=== PATIENT | male | born 1965 | race Caucasian/White ===

== ENCOUNTER 2018-06-21 14:26 | Emergency (ER) | payer BC ==
[2018-06-21 15:26] VITALS: BP 191/100
--- NOTE | 2018-06-21 16:44 | UC ---
FLU HPI - HPI Summary HPI Summary: 52 y/o male with 10 days h/o sinus congestion, dry cough worse at night, keeping him up. no pmh, no medications, no recent abx use. denies fever, chills, body aches, minimal throat pain. mild ear discomfort. - History of Current Complaint Chief Complaint: UCGeneralIllness Stated Complaint: EAR PAIN,SORE THROAT,COUGH Time Seen by Provider: 06/21/18 16:22 Hx Obtained From: Patient Onset/Duration: Sudden Onset, Lasting Days Severity Currently: Mild Severity Initially: Mild Pain Intensity: 0 Pain Scale Used: 0-10 Numeric Associated Signs & Symptoms: Positive: Cough, Sore Throat, Nasal Congestion - Allergy/Home Medications Allergies/Adverse Reactions: Allergies Allergy/AdvReac Type Severity Reaction Status Date / Time No Known Allergies Allergy Verified 06/21/18 15:26 PMH/Surg Hx/FS Hx/Imm Hx Previously Healthy: Yes - Surgical History Surgical History: Yes Surgery Procedure, Year, and Place: gallbladder removed - Social History Alcohol Use: Daily Alcohol Amount: 1-2 beers nightly Substance Use Type: None Smoking Status (MU): Current Some Day Smoker Type: Cigars Review of Systems All Other Systems Reviewed And Are Negative: Yes ENT: Positive: Nasal Discharge, Sinus Congestion Respiratory: Positive: Cough Is Patient Immunocompromised?: No Physical Exam Triage Information Reviewed: Yes Appearance: Well-Appearing, No Pain Distress, Well-Nourished Vital Signs: Initial Vital Signs Temp 97.7 F 06/21/18 15:23 Pulse 77 06/21/18 15:23 Resp 16 06/21/18 15:23 BP 191/100 06/21/18 15:23 Pulse Ox 99 06/21/18 15:23 Vital Signs Reviewed: Yes Eyes: Positive: Conjunctiva Clear ENT: Positive: Pharynx normal, TMs normal, TM red - minimal right sided, Uvula midline. Negative: Tonsillar swelling, Tonsillar exudate, Muffled voice, Hoarse voice, Dental tenderness, Sinus tenderness Neck: Positive: Supple, Nontender, No Lymphadenopathy Respiratory: Positive: Chest non-tender, Lungs clear, Normal breath sounds, No respiratory distress, No accessory muscle use. Negative: Crackles, Rhonchi, Stridor, Wheezing, Expiration Cardiovascular: Positive: RRR, No Murmur, Pulses Normal Abdomen Description: Negative: CVA Tenderness (R), CVA Tenderness (L) Neurological Exam: Normal Psychological Exam: Normal Flu Course/Dx - Course Course Of Treatment: leeanna viral URI, cough medication given follow up with primary if symptoms not improved - Differential Dx/Diagnosis Provider Diagnosis: Cough Discharge - Sign-Out/Discharge Documenting (check all that apply): Patient Departure All imaging exams completed and their final reports reviewed: No Studies - Discharge Plan Condition: Good Disposition: HOME Prescriptions: Codeine Phosphate/Guaifenesin [Guaifen-Codeine 100-10 mg/5 ml] 5 ml PO Q6H PRN # 40 ml MDD 10ml PRN Reason: cough hydroCHLOROthiazide [Hydrochlorothiazide] 12.5 mg PO DAILY #30 tablet Patient Education Materials: Decongestant/Expectorant (By mouth), Guaifenesin ( By mouth), Viral Syndrome (ED), Hypertension (ED) Referrals: Tito Henson DO [Primary Care Provider] - Additional Instructions: - Increase fluid intake - Humidifier at bedside - Guaif/ hildaiene for sleeping, help with cough - Mucinex during day to aide with bringing up phlegm - Cough drops, over the counter medications during the day - 12.5mg of hydrochlorothiazide every day to help with elevated blood pressure - FOllow up with your primary physician within 1 week due to elevated blood pressure. VERY IMPORTANT - Billing Disposition and Condition Condition: GOOD Disposition: Home
== END 2018-06-21 17:16 | disposition home or self-care (01) ==
LOC: UCCORT 14:26
DX: R05 Cough (principal); F17.210 Nicotine dependence, cigarettes, uncomplicated
CPT/HCPCS: 99212; G0463

== ENCOUNTER 2018-11-26 15:24 | Emergency (ER) | payer BC, OTHER ==
--- OUTSIDE RECORDS SUMMARY | 2018-11-26 15:41 | XMS REPORT | Continuity of Care Document ---
:1965 External Reference #:[id number] Author Name Tito Henson D.O. Address [address] [place] [address] Care Team Providers Name Role Phone HCP/LW on file Primary Care Physician Unavailable Payers Date Identification Numbers Payment Provider Subscriber Effective: Policy Number: [id number] Pierce [place] 2014 Ind/Ppo/Hmo/Pos Expires: 2018 Group Number: [id number] [address] PayID: [id number] [place] [address] Effective: 2018 Policy Number: [employer] Out Of Marty [place] [id number] [facility] PayID: [id number] [place] [address] Effective: 2018 Policy Number: [id number] [employer] [facility] Rhonda [place] PayID: [id number] [address] [place] [address] Problems Active Problems Provider Date Alcohol-induced sexual dysfunction Tito Henson D.O. Onset: 11/09/2018 Varicose veins of lower extremity Tito Henson D.O. Onset: 11/09/2018 Psychogenic impotence Tito Henson D.O. Onset: 11/09/2018 Essential hypertension Tito Henson D.O. 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 More on weekends Tobacco Use Start: Unknown Light tobacco smoker (10 or 2 cigars a week fewer cigarettes/day) Allergies, Adverse Reactions, Alerts Description No Known Drug Allergies Medications Active Medications SIG Qnty Indications Ordering Provider Date Losartan Potassium 1 tablet daily 90tabs I10 Francheska Hensonon, 11/09/2018 25mg for high blood D.O. Tablets pressure Viagra take one tablet 6tabs F52.21 Francheska Hensonon, 10/10/2018 100mg Tablets up to once daily D.O. as needed for erectile dysfunction; max 1 dose/day History Medications No Active Unknown 10/10/2018 - Medications 10/10/2018 Amlodipine Besylate take 1 tablet by 90tabs I10 Tito Henson, 2018 - mouth once daily D.O. 11/09/2018 5mg Tablets for high blood pressure Vitamin D3 take one capsule by 90caps E55.9 Tito Henson, 07/07/2015 - 5000Unit mouth every day or D.O. 10/09/2018 Capsules 7 tablets once a week Prednisone 2 pills for 3 days 11tabs 692.6 Tito Henson, 10/23/2013 - 20mg then 1 pill for 3 D.O. 11/02/2013 Tablets days 1/2 pill for 4 days. Augmentin 1 cap by mouth 20tabs 461.0 Tito Henson, 10/23/2013 - 875-125mg twice a day D.O. 11/02/2013 Tablets No Active Tito Henson, 03/22/2013 - Medications D.O. 03/22/2013 Viagra take 1 tablet by 18tabs F52.21 Tito Henson, 03/22/2013 - 25mg Tablets mouth daily as D.O. 10/09/2018 needed for erectile dysfunction 6 tabs/30days Immunizations CPT Code Status Date Vaccine Lot # [id number] Given 03/03/2016 Pneumococcal Immunization [id number] Given 03/03/2016 Flu, Split Virus 3Yrs [id number] Given 03/22/2013 Flu, Split Virus 3Yrs [id number] Vital Signs Date Vital Result Comment 11/09/2018 2:56pm BP Systolic 154 mmHg BP Diastolic 86 mmHg Weight 251.00 lb 10/10/2018 4:53pm BP Systolic 162 mmHg BP Diastolic 100 mmHg Height 67 inches 5'7" Weight 254.00 lb BMI (Body Mass Index) 39.8 kg/m2 08/07/2015 3:07pm BP Systolic 140 mmHg BP Diastolic 88 mmHg BP Systolic Recheck 148 mmHg BP Diastolic Recheck 88 mmHg Height 67.25 inches 5'7.25" Weight 235.00 lb BMI (Body Mass Index) 36.5 kg/m2 07/07/2015 3:31pm BP Systolic 157 mmHg BP Diastolic 91 mmHg BP Systolic Recheck 160 mmHg recheck Ra BP Diastolic Recheck 90 mmHg recheck Ra Heart Rate 76 /min Height 67.25 inches 5'7.25" Weight 244.00 lb BMI (Body Mass Index) 37.9 kg/m2 10/23/2013 3:44pm BP Systolic 128 mmHg BP Diastolic 82 mmHg Body Temperature 98.7 F Height 67.50 inches 5'7.50" Weight 229.00 lb BMI (Body Mass Index) 35.3 kg/m2 03/22/2013 8:42am BP Systolic 132 mmHg BP Diastolic 86 mmHg Height 67.75 inches 5'7.75" Weight 222.00 lb BMI (Body Mass Index) 34.0 kg/m2 Results Test Date Facility Test Result H/L Range Note CBC Auto Diff 10/28/2018 [facility] White Blood 7.3 10^3/uL N 3.5- 10.8 [phone] Count Red Blood Count 4.61 10^6/uL N 4.18-5.48 Hemoglobin 15.0 g/dL N 14.0-18.0 Hematocrit 44 % N 42-52 Mean Corpuscular Volume 95 fL High 80-94 Mean Corpuscular Hemoglobin 33 pg High 27-31 Mean Corpuscular HGB Conc 34 g/dL N 31-36 Red Cell Distribution Width 13 % N 10.5-15 Platelet Count 258 10^3/uL N 150-450 Mean Platelet Volume 8.1 fL N 7.4-10.4 Abs Neutrophils 4.2 10^3/uL N 1.5-7.7 Abs Lymphocytes 1.7 10^3/uL N 1.0-4.8 Abs Monocytes 0.6 10^3/uL N 0-0.8 Abs Eosinophils 0.7 10^3/uL High 0-0.6 Abs Basophils 0.1 10^3/uL N 0-0.2 Abs Nucleated RBC 0.0 10^3/uL Granulocyte % 57.5 % Lymphocyte % 23.7 % Monocyte % 8.2 % Eosinophil % 9.8 % Basophil % 0.8 % Nucleated Red Blood Cells % 0.0 Comp Metabolic Panel 10/28/2018 [facility] Sodium 138 mmol/L N 135- 145 [phone] Potassium 4.4 mmol/L N 3.5-5.0 Chloride 104 mmol/L N 101-111 Co2 Carbon Dioxide 27 mmol/L N 22-32 Anion Gap 7 mmol/L N 2-11 Glucose 102 mg/dL High 70-100 Blood Urea Nitrogen 15 mg/dL N 6-24 Creatinine 0.84 mg/dL N 0.67-1.17 BUN/Creatinine Ratio 17.9 N 8-20 Calcium 9.7 mg/dL N 8.6-10.3 Total Protein 7.6 g/dL N 6.4-8.9 Albumin 4.6 g/dL N 3.2-5.2 Globulin 3.0 g/dL N 2-4 Albumin/Globulin Ratio 1.5 N 1-3 Total Bilirubin 0.60 mg/dL N 0.2-1.0 Alkaline Phosphatase 66 U/L N 34-104 Alt 36 U/L N 7-52 Ast 24 U/L N 13-39 Egfr Non- 95.2 >60 Egfr 115.2 >60 1 Laboratory test 10/28/2018 [facility] TSH (Thyroid Stim 1.23 mcIU/mL N 0.34-5.60 finding [phone] Horm) Lipid Profile 10/28/2018 [facility] Triglycerides 81 mg/dL 2 (Trig/Chol/HDL) [phone] Cholesterol 166 mg/dL 3 HDL Cholesterol 61.6 mg/dL 4 LDL Cholesterol 88 mg/dL 5 Laboratory 08/04/2015 [facility] Hepatitis C Nonreactive N Nonreactive 6 test finding [phone] Antibody HIV 1/2 AB 08/04/2015 [facility] HIV 1 2 Antibody Nonreactive N Nonreactive 7 Evaluation [phone] Lipid Profile 08/04/2015 [facility] Triglycerides 83 mg/dL N 8 (Trig/Chol/HDL [phone] ) Cholesterol 152 mg/dL N 9 HDL Cholesterol 56.5 mg/dL N 10 LDL Cholesterol 79 mg/dL N 11 Laboratory test 08/04/2015 [facility] TSH (Thyroid 1.52 ?IU/mL N 0.34 -5.60 12 finding [phone] Stim Horm) Comp Metabolic 08/04/2015 [facility] Sodium 136 mmol/L N 133-145 Panel [phone] Potassium 4.4 mmol/L N 3.5-5.0 Chloride 103 mmol/L N 101-111 Co2 Carbon Dioxide 26 mmol/L N 22-32 Anion Gap 7 mmol/L N 2-11 Glucose 98 mg/dL N 70-100 Blood Urea Nitrogen 15 mg/dL N 6-24 Creatinine 0.99 mg/dL N 0.67-1.17 BUN/Creatinine Ratio 15.2 N 8-20 Calcium 9.4 mg/dL N 8.6-10.3 Total Protein 6.9 g/dL N 6.4-8.9 Albumin 4.4 g/dL N 3.2-5.2 Globulin 2.5 g/dL N 2-4 Albumin/Globulin Ratio 1.8 N 1-3 Total Bilirubin 0.50 mg/dL N 0.2-1.0 Alkaline Phosphatase 76 U/L N 34-104 Alt 33 U/L N 7-52 Ast 20 U/L N 13-39 Egfr Non- 79.7 N >60 Egfr 102.5 N >60 13 CBC Auto Diff 08/04/2015 [facility] White Blood Count 8.1 10^3/uL N 3.5-10.8 [phone] Red Blood Count 4.68 10^6/uL N 4.0-5.4 Hemoglobin 15.3 g/dL N 14.0-18.0 Hematocrit 46 % N 42-52 Mean Corpuscular Volume 98 fL High 80-94 Mean Corpuscular Hemoglobin 33 pg High 27-31 Mean Corpuscular HGB Conc 34 g/dL N 31-36 Red Cell Distribution Width 13 % N 10.5-15 Platelet Count 268 10^3/uL N 150-450 Mean Platelet Volume 8 um3 N 7.4-10.4 Abs Neutrophils 5.4 10^3/uL N 1.5-7.7 Abs Lymphocytes 1.7 10^3/uL N 1.0-4.8 Abs Monocytes 0.5 10^3/uL N 0-0.8 Abs Eosinophils 0.4 10^3/uL N 0-0.6 Abs Basophils 0 10^3/uL N 0-0.2 Abs Nucleated RBC 0.01 10^3/uL N Granulocyte % 67.0 % N 38-83 Lymphocyte % 21.4 % Low 25-47 Monocyte % 5.6 % N 1-9 Eosinophil % 5.5 % N 0-6 Basophil % 0.5 % N 0-2 Nucleated Red Blood Cells % 0.1 N Ua Inhouse 03/22/2013 In House Ua Glucose - Ua Bilirubin - Ua Ketones - Ua Specific [place] 1.010 Ua Blood - Ua PH 6.0 Ua Protein - Ua Urobilinogen - Ua Nitrite - Ua Leukocytes - Lipid Profile 03/22/2013 [facility] Triglycerides 145 mg/dL 40-200 (Trig/Chol/HDL) [phone] Cholesterol 148 mg/dL Less than 200 HDL Cholesterol 41 mg/dL 40-60 14 Cholesterol/HDL Ratio 3.6 Average 1-4.44 LDL Cholesterol 78.0 Less Than 100 15 CBC With Manual 03/22/2013 [facility] White Blood 6.3 10^3/uL 4.8- 10.8 Diff [phone] Count Red Blood Count 4.39 10^6/uL 4.0-5.4 Hemoglobin 15.6 g/dL 14.0-18.0 Hematocrit 44 % 42-52 Mean Corpuscular Volume 99 fL High 80-94 Mean Corpuscular Hemoglobin 36 pg High 27-31 Mean Corpuscular HGB Conc 36 g/dL 31-36 Red Cell Distribution Width 12 % 10.5-15 Platelet Count 233 10^3/uL 150-450 Mean Platelet Volume 8 um3 7.4-10.4 Abs Neutrophils 3.5 10^3/uL 1.5-7.7 Abs Lymphocytes 1.6 10^3/uL 1.0-4.8 Abs Monocytes 0.6 10^3/uL 0-0.8 Abs Eosinophils 0.5 10^3/uL 0-0.6 Abs Basophils 0 10^3/uL 0-0.2 Abs Nucleated RBC 0 10^3/uL Neutrophil % 52 % 38-83 Lymphocytes % 25 % 25-47 Monocytes % 8 % 0-13 Eosinophils % 9 % High 0-6 Basophil % 1 % 0-2 Reactive Lymph % 5 % 0-6 RBC Morphology Normal Normal Comp Metabolic Panel 03/22/2013 [facility] Sodium 135 mmol/L 133- 145 [phone] Potassium 3.9 mmol/L 3.5-5.0 Chloride 102 mmol/L 101-111 Co2 Carbon Dioxide 27.0 mmol/L 22-32 Anion Gap 6.0 mmol/L 2-11 Glucose 94 mg/dL 70-100 Blood Urea Nitrogen 14 mg/dL 6-24 Creatinine 0.90 mg/dL 0.50-1.40 BUN/Creatinine Ratio 15.6 8-20 Calcium 9.4 mg/dL 8.1-9.9 Total Protein 6.9 g/dL 6.2-8.1 Albumin 4.3 g/dL 3.6-5.4 Globulin 2.6 g/dL 2-4 Albumin/Globulin Ratio 1.7 1-3 Total Bilirubin 0.9 mg/dL 0.4-1.5 Alkaline Phosphatase 64 U/L 30-110 Alt 23 U/L 14-54 Ast 19 U/L 12-42 Egfr Non- 89.7 >60 Egfr 115.3 >60 16 Laboratory test 03/22/2013 [facility] TSH (Thyroid 1.16 miu/mL 0.34- 5.60 finding [phone] Stimulating Horm) Vitamin D, 25 03/22/2013 [facility] 25-Hydroxy <4.0 ng/mL Hydroxy [phone] Vitamin D2 25-Hydroxy Vitamin D3 23 ng/mL 25-Hydroxy Vitamin D Total 23 ng/mL 17 1 Because ethnic data is not always readily available, this report includes an eGFR for both -Americans and non- Americans. The National Kidney Disease Education Program (NKDEP) does not endorse the use of the MDRD equation for patients that are not between the ages of 18 and 70, are , have extremes of body size, muscle mass, or nutritional status, or are non- or non-. According to the National Kidney Foundation, irrespective of diagnosis, the stage of the disease is based on the level of kidney function: Stage Description GFR(mL/min/1.73 m(2)) 1 Kidney damage with normal or decreased GFR 90 2 Kidney damage with mild decrease in GFR 60-89 3 Moderate decrease in GFR 30-59 4 Severe decrease in GFR 15-29 5 Kidney failure <15 (or dialysis) 2 Desirable: <150 Borderline High: 150-199 High: 200-499 Very High: >500 3 Desirable: <200 Borderline High: 200-239 High: >239 4 Low: <40 Desirable: 40-60 High: >60 5 Desirable: <100 Near Optimal: 100-129 Borderline High: 130-159 High: 160-189 Very High: >189 6 FASTING 12 HOUR 7 It is recognized that currently available assays for the detection of antibodies to HIV-1 and/or HIV-2 may not detect all infected individuals. HIV antibodies may be undetectable in some stages of the infection and in some clinical conditions. The performance of this assay has not been established for populations of infants or children. Assayed by Chemiluminescence Microparticle Immunoassay on the Siemens Advia Centaur CP. Values obtained with different methods or kits cannot be used interchangeably.The diagnostic specificity of the ADVIA Centaur 1/O/2 Enhanced assay in the low risk population was 99.90% (6052/6058) with a 95% confidence interval of 99.78 to 99.96%. 8 Desirable <150 Borderline high 150-199 High 200-499 Very High >500 9 Desirable <200 Borderline high 200-239 High >239 10 Low <40 Desirable: 40-60 High: >60 11 Desirable: <100 mg/dL Near Optimal: 100-129 mg/dL Borderline High: 130-159 mg/dL High: 160-189 mg/dL Very High: >189 mg/dL 12 FASTING 12 HOUR 13 Because ethnic data is not always readily available, this report includes an eGFR for both -Americans and non- Americans. The National Kidney Disease Education Program (NKDEP) does not endorse the use of the MDRD equation for patients that are not between the ages of 18 and 70, are , have extremes of body size, muscle mass, or nutritional status, or are non- or non-. According to the National Kidney Foundation, irrespective of diagnosis, the stage of the disease is based on the level of kidney function: Stage Description GFR(mL/min/1.73 m(2)) 1 Kidney damage with normal or decreased GFR 90 2 Kidney damage with mild decrease in GFR 60-89 3 Moderate decrease in GFR 30-59 4 Severe decrease in GFR 15-29 5 Kidney failure <15 (or dialysis) 14 HDL Interpretation: Undesirable: High Risk: Less than 40 mg/dL Desirable: Low Risk: Greater than 60 mg/dL 15 LDL Interpretation: Low Risk Optimal Level: LDL Less than 100 mg/dL Near or Above Optimal: LDL 100-129 mg/dL Borderline High Risk: LDL 130-159 mg/dL High Risk: LDL 160-189 mg/dL Very High Risk: LDL Greater than 189 mg/dL 16 Because ethnic data is not always readily available, this report includes an eGFR for both -Americans and non- Americans. The National Kidney Disease Education Program (NKDEP) does not endorse the use of the MDRD equation for patients that are not between the ages of 18 and 70, are , have extremes of body size, muscle mass, or nutritional status, or are non- or non-. According to the National Kidney Foundation, irrespective of diagnosis, the stage of the disease is based on the level of kidney function: Stage Description GFR(mL/min/1.73 m(2)) 1 Kidney damage with normal or decreased GFR 90 2 Kidney damage with mild decrease in GFR 60-89 3 Moderate decrease in GFR 30-59 4 Severe decrease in GFR 15-29 5 Kidney failure <15 (or dialysis) 17 -- REFERENCE VALUE -- 25-HYDROXY D TOTAL (D2+D3) Optimum levels in the healthy population are 20-50, patients with bone disease may benefit from higher levels within this range. Test Performed by: [address] [address] Clinical Analyst: Pb Cai III, M.D. Procedures Date Code Description Status 06/20/2009 [id number] Colonoscopy Completed Encounters Type Date Location Provider Dx Diagnosis Office Visit 11/09/2018 Main Office Tito Henson, I10 Essential (primary ) 2:45p D.O. hypertension F52.21 Male erectile disorder I83.892 Varicose veins of l low extrem with other complications F10.981 Alcohol use, unsp with alcohol-induced sexual dysfunction Office Visit 10/10/2018 4:30p Main Office Tito Henson, I10 Essential ( primary) D.O. hypertension F52.21 Male erectile disorder I83.892 Varicose veins of l low extrem with other complications Z12.11 Encounter for screening for malignant neoplasm of colon Office Visit 08/07/2015 3:00p Main Office Tito Henson, R03.0 Elevated D.O. blood-pressure reading, w/o diagnosis of htn E55.9 Vitamin D deficiency, unspecified Office Visit 07/07/2015 3:30p Main Office Tito Henson, E55.9 Vitamin D D.O. deficiency, unspecified Z00.01 Encounter for general adult medical exam w abnormal findings R03.0 Elevated blood-pressure reading, w/o diagnosis of htn Office Visit 10/23/2013 3:00p Main Office Tito Henson, 692.6 Dermatitis Contact D.O. Due To Plants (Except Food) 461.0 Sinusitis Acute Maxillary Office Visit 03/22/2013 8:45a Main Office Tito Henson, 302.72 Psychosexual D.O. Dysfunction W/ Inhibited Sexual Excitement V70.0 Examination General Medical Routine AT Health Care Facility v04.81 Need For Prophylactic Vaccination & Inoculation/Influenza v07.2 Prophylactic Immunotherapy Plan of Treatment Future Appointment(s):01/02/2019 3:00 pm - Tito Henson D.O. at [facility]/09/2018 - Tito Henson D.O.I10 Essential (primary) hypertensionNew Medication:Losartan Potassium 25 mg - 1 tablet daily for high blood pressureNew Labs:Basic Metabolic Panel, Scheduled: 11/27/18Follow up:2 months recheck HTNF52.21 Male erectile vbuvflrrS24.892 Varicose veins of left lower extremity with other nkqpitdfzyM56.981 Alcohol use, unspecified with alcohol-induced sexual dysfunc
--- NOTE | 2018-11-26 15:45 | UC ---
Skin Complaint HPI - HPI Summary HPI Summary: Pt removed a tick yesterday from his right upper inner arm. It was embedded only about 1 hour, if that long. It was not engorged. Pt states his looked at it and said it was not a deer tick. - History of Current Complaint Time Seen by Provider: 11/26/18 15:30 Stated Complaint: TICK BITE Hx Obtained From: Patient Onset/Duration: Sudden Onset Skin Exposure Onset/Duration: Days Ago - Yesterday Onset Severity: Mild Current Severity: None Location: Other - Right upper arm Aggravating Factor(s): Nothing Alleviating Factor(s): Nothing Associated Signs & Symptoms: Positive: Rash - Very small reddened area where the tick bit him. - Allergy/Home Medications Allergies/Adverse Reactions: Allergies Allergy/AdvReac Type Severity Reaction Status Date / Time No Known Allergies Allergy Verified 11/26/18 15:42 Home Medications: Home Medications Losartan TAB* [Cozaar TAB*] 1 tab DAILY 11/26/18 [History Confirmed 11/26/18] PMH/Surg Hx/FS Hx/Imm Hx Previously Healthy: Yes Cardiovascular History: Hypertension - Surgical History Surgical History: Yes Surgery Procedure, Year, and Place: gallbladder removed - Family History Known Family History: Positive: Non-Contributory - Social History Alcohol Use: Daily Alcohol Amount: 1-2 beers nightly Substance Use Type: None Smoking Status (MU): Current Some Day Smoker Type: Cigars Review of Systems All Other Systems Reviewed And Are Negative: Yes Skin: Positive: Other - Very small reddened area right aupper inner arm measuring approx 2.5 cm X 2.5 cm Is Patient Immunocompromised?: No Physical Exam Triage Information Reviewed: Yes Appearance: Well-Appearing, No Pain Distress, Well-Nourished Vital Signs Reviewed: Yes Skin: Positive: Other - Very small reddened area right aupper inner arm measuring approx 2.5 cm X 2.5 cm Course/Dx - Course Course Of Treatment: I discussed the CDC guidelines with the patient. The tick was only embedded for one hour and easily removed, it was not engorged. At this point the pt opts not to have the Doxycycline prophylaxis. - Diagnoses Provider Diagnosis: Tick bite Discharge - Sign-Out/Discharge Documenting (check all that apply): Patient Departure All imaging exams completed and their final reports reviewed: No Studies - Discharge Plan Condition: Good Disposition: HOME Patient Education Materials: Tick Bite (ED) Referrals: Tito Henson DO [Primary Care Provider] - Additional Instructions: Follow up with your own doctor as needed especially if you develop fever, joint aches, rash - Billing Disposition and Condition Condition: GOOD Disposition: Home
[2018-11-26 15:46] VITALS: BP 166/74
== END 2018-11-26 16:00 | disposition home or self-care (01) ==
LOC: UCCORT 15:24
DX: S40.861A Insect bite (nonvenomous) of right upper arm, initial encounter (principal); W57.XXXA Bitten or stung by nonvenomous insect and other nonvenomous arthropods, initial encounter; Y92.9 Unspecified place or not applicable; I10 Essential (primary) hypertension; Z72.0 Tobacco use
CPT/HCPCS: 99211; G0463